=== PATIENT | female | born 1975 ===

== ENCOUNTER 2017-10-14 22:42 | Inpatient (IN) ==
[2017-10-14] MEDS ORDERED: ceFAZolin 2 GM Premix Inj 2 GM/50 ML PIGGYBACK IV.SIG ONE (22:49)
[2017-10-14 22:57] LABS: Baso # (Auto) 0.3 th/mm3 (0.0-0.2); Eos # (Auto) 0.7 th/mm3 (0.0-0.4); Eos % (Auto) 2.3 % (0.0-4.0); Hematocrit 39.6 % (35.0-46.0); Hemoglobin 12.9 gm/dL (11.6-15.3); Lymph # (Auto) 8.2 th/mm3 (1.0-4.8); Lymph % (Auto) 27.5 % (9.0-44.0); Mean Corpuscular HGB Conc 32.5 % (32.0-36.0); Mean Corpuscular Hemoglobin 29.7 pg (27.0-34.0); Mean Corpuscular Volume 91.2 fL (80.0-100.0); Mean Platelet Volume 8.3 fL (7.0-11.0); Mono # (Auto) 1.3 th/mm3 (0.0-0.9); Mono % (Auto) 4.5 % (0.0-8.0); Neut # (Auto) 19.4 th/mm3 (1.8-7.7); Neut % (Auto) 64.7 % (16.0-70.0); Platelet Count 279 th/mm3 (150-450); Red Blood Count 4.34 mil/mm3 (4.00-5.30); White Blood Count 29.9 th/mm3 (4.0-11.0)
[2017-10-14 23:07] LABS: Activated Partial Thrombo Time 25.7 sec (24.3-30.1); INR 1.1 Ratio; Prothrombin Time 10.9 sec (9.8-11.6)
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
[2017-10-14 23:48] LABS: Monocytes 3 % (0-8)
[2017-10-14 23:49] LABS: Lymphocytes 29 % (9-44)
[2017-10-14 23:50] LABS: Platelet Estimate Normal (Normal); Platelet Morphology Normal (Normal); RBC Morphology Normal (Normal)
[2017-10-14] MEDS ORDERED: Bisacodyl 10 MG Supp RECTAL PRN (23:50)
[2017-10-14] MEDS ORDERED: Norepinephrine Inj 4 MG/4 ML Ampul ONE (23:54)
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
[2017-10-15] MEDS ORDERED: Propofol 1000 mg/100 ml Inj 1,000 MG/100 ML BOTTLE IV.CONT PRN (00:35)
[2017-10-15] MEDS ORDERED: Propofol Inj 500 MG/50 ML Vial ONE (00:38)
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
[2017-10-15 01:23] LABS: ABG Base Excess -9.1 mmol/L (-2-2); ABG PCO2 33 mmHg (38-42); ABG PO2 291 mmHg (61-120)
[2017-10-15] MEDS: Sod Chloride 0.9% Inj 1,000 ML IV.CONT SCH ×3 (01:31→16:10)
[2017-10-15] MEDS ORDERED: Norepinephrine Inj 4 MG/4 ML Ampul ONE ×5 (01:50→08:07)
[2017-10-15] MEDS ORDERED: Phenylephrine Inj 40 MG in Dextrose 5% in Water Inj 496 ML IV.CONT PRN ×2 (01:52)
[2017-10-15] MEDS ORDERED: Vasopressin Inj 40 UNIT in Dextrose 5% in Water Inj 98 ML IV.CONT PRN ×2 (01:52)
[2017-10-15 03:21] LABS: Baso # (Auto) 0.1 th/mm3 (0.0-0.2); Baso % (Auto) 0.6 % (0.0-2.0); Eos # (Auto) 0.1 th/mm3 (0.0-0.4); Eos % (Auto) 0.6 % (0.0-4.0); Hemoglobin 9.3 gm/dL (11.6-15.3); Lymph # (Auto) 4.3 th/mm3 (1.0-4.8); Mean Corpuscular HGB Conc 33.1 % (32.0-36.0); Mean Corpuscular Hemoglobin 30.2 pg (27.0-34.0); Mean Corpuscular Volume 91.2 fL (80.0-100.0); Mean Platelet Volume 8.4 fL (7.0-11.0); Mono # (Auto) 0.5 th/mm3 (0.0-0.9); Mono % (Auto) 1.9 % (0.0-8.0); Neut # (Auto) 20.4 th/mm3 (1.8-7.7); Neut % (Auto) 79.9 % (16.0-70.0); Platelet Count 158 th/mm3 (150-450); Red Blood Count 3.07 mil/mm3 (4.00-5.30); Red Cell Distribution Width 13.9 % (11.6-17.2); White Blood Count 25.6 th/mm3 (4.0-11.0)
[2017-10-15] MEDS ORDERED: Chlorhexidine Gluconate 2% 1 Pack (2 Cloths) TOPICAL PRN (04:00)
[2017-10-15 04:27] LABS: Calcium 5.8 mg/dL (8.5-10.1); Carbon Dioxide 16.4 meq/L (21.0-32.0); Magnesium 1.6 mg/dL (1.5-2.5); Phosphorus 3.4 mg/dL (2.5-4.9); Potassium 3.9 meq/L (3.5-5.1)
[2017-10-15] MEDS ORDERED: ceFAZolin 2 GM IV; once IV.SIG ONE (04:45)
[2017-10-15 05:00] LABS: Total Protein 3.4 g/dL (6.4-8.2)
[2017-10-15] MEDS: Propofol 1000 mg/100 ml Inj 1,000 MG/100 ML BOTTLE IV.CONT PRN ×2 (05:48→12:20)
[2017-10-15 07:30] LABS: Baso # (Auto) 0.1 th/mm3 (0.0-0.2); Baso % (Auto) 0.5 % (0.0-2.0); Eos # (Auto) 0.1 th/mm3 (0.0-0.4); Eos % (Auto) 0.2 % (0.0-4.0); Hematocrit 40.9 % (35.0-46.0); Hemoglobin 13.8 gm/dL (11.6-15.3); Lymph # (Auto) 2.6 th/mm3 (1.0-4.8); Lymph % (Auto) 10.1 % (9.0-44.0); Mean Corpuscular HGB Conc 33.7 % (32.0-36.0); Mean Corpuscular Hemoglobin 29.8 pg (27.0-34.0); Mean Corpuscular Volume 88.3 fL (80.0-100.0); Mean Platelet Volume 8.1 fL (7.0-11.0); Mono # (Auto) 1.2 th/mm3 (0.0-0.9); Mono % (Auto) 4.6 % (0.0-8.0); Neut % (Auto) 84.6 % (16.0-70.0); Platelet Count 123 th/mm3 (150-450); Red Blood Count 4.63 mil/mm3 (4.00-5.30); Red Cell Distribution Width 14.2 % (11.6-17.2); White Blood Count 26.1 th/mm3 (4.0-11.0)
[2017-10-15] MEDS ORDERED: Potassium Chlor 20 mEq Premix 20 MEQ/100 ML PIGGYBACK IV.SIG PRN ×2 (07:37)
[2017-10-15] MEDS ORDERED: Magnesium Oxide 400 MG Tablet PO PRN (07:37)
[2017-10-15] MEDS ORDERED: Potassium Phosphate 500 MG Soluble Tablet PO PRN ×2 (07:37)
[2017-10-15] MEDS ORDERED: Potassium Chloride 25 MEQ Effervescent Tablet PO PRN (07:37)
[2017-10-15] MEDS ORDERED: Sodium Phosphate Inj 30 MMOL in Sodium Chlor 0.9% Inj 250 ML IV.SIG PRN (07:37)
[2017-10-15] MEDS ORDERED: Potassium Chlor 40 mEq Premix 40 MEQ/100 ML PIGGYBACK IV.SIG PRN ×2 (07:37)
[2017-10-15] MEDS ORDERED: Magnesium Sulfate Inj 2 GM in Sodium Chlor 0.9% Inj 96 ML IV.SIG PRN (07:37)
[2017-10-15] MEDS ORDERED: Magnesium Sulfate Inj 4 GM in Sodium Chlor 0.9% Inj 92 ML IV.SIG PRN (07:37)
[2017-10-15] MEDS ORDERED: Potassium Phosphate Inj 30 MMOL in Sodium Chlor 0.9% Inj 250 ML IV.SIG PRN (07:37)
[2017-10-15 08:17] LABS: Albumin 2.2 g/dL (3.4-5.0); Calcium 6.6 mg/dL (8.5-10.1); Carbon Dioxide 18.5 meq/L (21.0-32.0); Potassium 3.7 meq/L (3.5-5.1); Total Protein 4.1 g/dL (6.4-8.2)
[2017-10-15] MEDS ORDERED: Mag Sulf 1 gm/100 ml Premix 200 ML IV.SIG ONE (09:00)
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
[2017-10-15] MEDS ORDERED: Calcium Chloride Inj 1 GM/10 ML Syringe IV.CONT ONE (11:34)
[2017-10-15] MEDS ORDERED: Atropine Inj 1 MG/10 ML Syringe IV.PUSH ONE (11:34)
[2017-10-15] MEDS ORDERED: Sodium Bicarbonate 8.4% Inj 50 MEQ/50 ML Syringe IV.CONT ONE (11:34)
--- NOTE | 2017-10-15 11:35 | P.PNNS ---
Subjective Interval history: 42-year-old female with severe traumatic brain injury with a Sheyla Coma Score of 5 on presentation underwent cardiac arrest status post resuscitation. She also has a comminuted depressed left occipital area of the skull fracture. Her neurologic examination remains poor with a Sheyla Coma Score of 4 and fixed and dilated right pupil with negative corneal gag and cough reflex although has some spontaneous respiration extension posturing to pain. Apparently family has elected on no further resuscitation and made her DNR according to nursing staff contemplating withdrawal of supportive care. Physical Exam Vital signs: Vital Signs 10/14/17 23:45 10/15/17 02:58 10/15/17 04:00 Temperature 100.3 F H Pulse Rate 156 H 109 H Respiratory Rate 28 H 36 H 36 H Blood Pressure 163/106 H Pulse Oximetry 98 99 10/15/17 04:07 10/15/17 08:00 10/15/17 09:00 Temperature 101.8 F H Pulse Rate 103 H Respiratory Rate 30 H 25 H 27 H Blood Pressure 148/95 H Pulse Oximetry 100 100 10/15/17 09:03 Temperature Pulse Rate 106 H Respiratory Rate 27 H Blood Pressure Pulse Oximetry Intake & Output 10/14/17 10/15/17 10/15/17 18:59 06:59 18:59 Intake Total 1650 / 1650 Output Total 400 / 400 Balance 1250 / 1250 Weight 87 kg Intake: IV 50 / 50 Ancef 2 GM Premix Inj 2 gm In 50 / 50 50 ml @ 0 mls/hr IV.SIG .STK- MED ONE Rx#:[id number] Intake (Blood Product) Amt 800 / 800 Rbc As-3 Leukoreduced Unit 400 / 400 [id number] Rbc As-3 Leukoreduced Unit 400 / 400 [id number] Mass Transfusion Protocol 800 / 800 Output: Urine Amount (Catheter) 400 / 400 Indwelling Urethral Catheter 400 / 400 Other: Date of Last Bowel Movement 10/15/17 10/15/17 # Bowel Movements 2 Weight On Admission 87.3 kg - Constitutional obtunded - Routine HEENT Exam Head: Present: abrasion, laceration, Almendarez's sign, facial swelling - Detailed Head Exam Comments: Head pressure dressing in place - Detailed Eye Exam Pupils: Left regular, round, Left reactive, Right nonreactive/fixed, Right dilated - Routine Neck Exam Present: supple, trachea midline - Routine Respiratory Exam Present: patient mechanically ventilated, crackles - Routine Cardiovascular Exam Present: RRR - Routine Abdominal Exam Present: soft, normoactive bowel sounds - Routine Exam Comments: Roo catheter in place - Routine Extremities Exam Present: edema, pulses intact, normal capillary refill - Routine Skin Exam Present: lesions, wounds - Urinary Catheter Management Indwelling Urethral Catheter Cath placed during this visit: no Assessment and Plan - Plan Impression: 1. Severe traumatic brain injury 2. Extensive parieto-occipital scalp avulsion with underlying comminuted depressed skull fracture open to the dura and brain parenchyma 3. Right lateral clavicle proximal left humerus fractures 4. Status post cardiac arrest requiring resuscitation Plan: Very guarded prognosis at this point given the severity of the injuries with PEA arrest in the emergency room. Neurologic examination remains poor with a [place] Coma Score 4 and a fixed and dilated right pupil with negative corneal and gag or cough reflex does have some left pupillary response and decerebrate posturing with spontaneous respiration. She is suffered from significant traumatic injury to the brain with loss of majority brainstem reflexes. Family has made her DNR and are contemplating withdrawal of supportive care. Diagnostic Tests Laboratory: Laboratory Results - last 72 hr 10/14/17 10/14/17 10/14/17 22:45 22:45 22:45 WBC 29.9 H RBC 4.34 Hgb 12.9 POC Hgb (Calc) 12.2 Hct 39.6 POC Hct 36.0 MCV 91.2 MCH 29.7 MCHC 32.5 RDW 13.0 Plt Count 279 MPV 8.3 Prelim Diff (Auto) Slide review pending Neut % (Auto) 64.7 Lymph % (Auto) 27.5 [place] % (Auto) 4.5 Eos % (Auto) 2.3 Baso % (Auto) 1.0 Neut # (Auto) 19.4 H Lymph # (Auto) 8.2 H [place] # (Auto) 1.3 H Eos # (Auto) 0.7 H Baso # (Auto) 0.3 H WBC Differential Manual diff final Seg Neuts % (Manual) 66 Band Neuts % (Manual) 2 Lymphocytes % (Manual) 29 Monocytes % (Manual) 3 Abs Neuts (Manual) 20.3 H Differential Comment . Platelet Estimate Normal Platelet Morphology Normal RBC Morphology Normal PT 10.9 INR 1.1 APTT 25.7 Fibrinogen Puncture Site Patient Temperature O2 Saturation ABG pH ABG pCO2 ABG pO2 ABG HCO3 ABG O2 Content ABG Base Excess ABG Methemoglobin Matthew Test Hemoglobin Carboxyhemoglobin O2 Delivery Device Vent Setting Inspired O2 Critical Value POC Sodium 142 Sodium POC Potassium 4.2 Potassium POC Chloride 107 Chloride Carbon Dioxide Anion Gap POC BUN 16 BUN Creatinine POC Creatinine 1.0 Estimated GFR POC Glucose 138 H Random Glucose Calcium Prot Corrected Calcium Phosphorus Magnesium Total Bilirubin AST ALT Alkaline Phosphatase Total Protein Albumin Beta HCG, Quant 2 Blood Type Blood Type Confirm Blood Type Recheck Antibody Screen MTS Gel Crossmatch 10/14/17 10/14/17 10/14/17 22:45 22:45 22:45 WBC RBC Hgb POC Hgb (Calc) Hct POC Hct MCV MCH MCHC RDW Plt Count MPV Prelim Diff (Auto) Neut % (Auto) Lymph % (Auto) [place] % (Auto) Eos % (Auto) Baso % (Auto) Neut # (Auto) Lymph # (Auto) [place] # (Auto) Eos # (Auto) Baso # (Auto) WBC Differential Seg Neuts % (Manual) Band Neuts % (Manual) Lymphocytes % (Manual) Monocytes % (Manual) Abs Neuts (Manual) Differential Comment Platelet Estimate Platelet Morphology RBC Morphology PT INR APTT Fibrinogen 239 Puncture Site Patient Temperature O2 Saturation ABG pH ABG pCO2 ABG pO2 ABG HCO3 ABG O2 Content ABG Base Excess ABG Methemoglobin Matthew Test Hemoglobin Carboxyhemoglobin O2 Delivery Device Vent Setting Inspired O2 Critical Value POC Sodium Sodium POC Potassium Potassium POC Chloride Chloride Carbon Dioxide Anion Gap POC BUN BUN Creatinine POC Creatinine Estimated GFR POC Glucose Random Glucose Calcium Prot Corrected Calcium Phosphorus Magnesium Total Bilirubin AST ALT Alkaline Phosphatase Total Protein Albumin Beta HCG, Quant Cancelled Blood Type A Positive Blood Type Confirm Blood Type Recheck Not needed Antibody Screen Negative MTS Gel Crossmatch See Detail 10/14/17 10/15/17 10/15/17 22:45 01:00 02:26 WBC 25.6 H RBC 3.07 L Hgb 9.3 L D POC Hgb (Calc) Hct 28.0 L POC Hct MCV 91.2 MCH 30.2 MCHC 33.1 RDW 13.9 Plt Count 158 D MPV 8.4 Prelim Diff (Auto) Neut % (Auto) 79.9 H Lymph % (Auto) 17.0 [place] % (Auto) 1.9 Eos % (Auto) 0.6 Baso % (Auto) 0.6 Neut # (Auto) 20.4 H Lymph # (Auto) 4.3 [place] # (Auto) 0.5 Eos # (Auto) 0.1 Baso # (Auto) 0.1 WBC Differential . Seg Neuts % (Manual) Band Neuts % (Manual) Lymphocytes % (Manual) Monocytes % (Manual) Abs Neuts (Manual) Differential Comment Auto diff final Platelet Estimate Platelet Morphology RBC Morphology PT INR APTT Fibrinogen Puncture Site Right brachial Patient Temperature 98.6 O2 Saturation 97 ABG pH 7.31 L ABG pCO2 33 L ABG pO2 291 H ABG HCO3 16 L* ABG O2 Content 14.5 ABG Base Excess -9.1 L ABG Methemoglobin 1.1 Matthew Test Present Hemoglobin 10.1 L Carboxyhemoglobin 1.6 O2 Delivery Device Ventilator Vent Setting See comments Inspired O2 100 Critical Value Yes POC Sodium Sodium POC Potassium Potassium POC Chloride Chloride Carbon Dioxide Anion Gap POC BUN BUN Creatinine POC Creatinine Estimated GFR POC Glucose Random Glucose Calcium Prot Corrected Calcium Phosphorus Magnesium Total Bilirubin AST ALT Alkaline Phosphatase Total Protein Albumin Beta HCG, Quant Blood Type Blood Type Confirm A Positive Blood Type Recheck Antibody Screen MTS Gel Crossmatch 10/15/17 10/15/17 10/15/17 02:26 07:00 07:00 WBC 26.1 H RBC 4.63 Hgb 13.8 D POC Hgb (Calc) Hct 40.9 POC Hct MCV 88.3 MCH 29.8 MCHC 33.7 RDW 14.2 Plt Count 123 L MPV 8.1 Prelim Diff (Auto) Neut % (Auto) 84.6 H Lymph % (Auto) 10.1 [place] % (Auto) 4.6 Eos % (Auto) 0.2 Baso % (Auto) 0.5 Neut # (Auto) 22.0 H Lymph # (Auto) 2.6 [place] # (Auto) 1.2 H Eos # (Auto) 0.1 Baso # (Auto) 0.1 WBC Differential . Seg Neuts % (Manual) Band Neuts % (Manual) Lymphocytes % (Manual) Monocytes % (Manual) Abs Neuts (Manual) Differential Comment Auto diff final Platelet Estimate Platelet Morphology RBC Morphology PT INR APTT Fibrinogen Puncture Site Patient Temperature O2 Saturation ABG pH ABG pCO2 ABG pO2 ABG HCO3 ABG O2 Content ABG Base Excess ABG Methemoglobin Matthew Test Hemoglobin Carboxyhemoglobin O2 Delivery Device Vent Setting Inspired O2 Critical Value POC Sodium Sodium 149 H 149 H POC Potassium Potassium 3.9 3.7 POC Chloride Chloride 118 H 117 H Carbon Dioxide 16.4 L 18.5 L Anion Gap 15 14 POC BUN BUN 16 18 Creatinine 1.18 H 1.41 H POC Creatinine Estimated GFR 39 L 32 L POC Glucose Random Glucose 191 H 107 H Calcium 5.8 L* 6.6 L* D Prot Corrected Calcium 7.6 L 8.2 L Phosphorus 3.4 Magnesium 1.6 Total Bilirubin 0.9 AST 94 H ALT 47 Alkaline Phosphatase 66 Total Protein 3.4 L 4.1 L D Albumin 2.2 L Beta HCG, Quant Blood Type Blood Type Confirm Blood Type Recheck Antibody Screen MTS Gel Crossmatch Result Diagrams: 10/15/17 07:00 10/15/17 07:00 Imaging: Chest X-Ray 10/14/17 22:45 CONCLUSION: 1. The lungs are symmetrically aerated and clear. 2. Intubation of right main bronchus. The tube needs to be withdrawn at least 5 cm. Pelvis X-Ray 10/14/17 22:45 CONCLUSION: Bony pelvic ring is grossly intact. Abdomen/Pelvis CT 10/14/17 22:49 CONCLUSION: 1. The solid and hollow organs of the abdomen/pelvis are intact. No evidence of free fluid. 2. Probable bilateral hematomas in the lateral breasts, larger on the left than on the right. Cervical Spine CT 10/14/17 22:49 CONCLUSION: 1. Negative trauma CT cervical spine. Chest CT 10/14/17 22:49 CONCLUSION: 1. Fractures of the right lateral clavicle, right ribs, and proximal left humerus. 2. Consolidation and volume loss in the right upper lobe. 3. Moderate atelectasis medial posterior left midlung. 4. No evidence of pneumothorax. Head CT 10/14/17 22:49 CONCLUSION: 1. Large anteriorly displaced left high occipital skull fracture. 2. Large right scalp hematoma and soft tissue swelling extending about the right face with multiple collections of gas, but no radiopaque foreign bodies. 3. Subarachnoid hemorrhage bilateral occipital and parietal and right temporal region. Punctate cortical hemorrhages in bifrontal region. 4. No evidence of midline shift, but there is evidence of transtentorial herniation with effacement of the cisterns about the brainstem and cerebellum. Ankle X-Ray 10/14/17 23:16 CONCLUSION: Osseous structures about the ankle are grossly intact on this two-view examination. Lumbar Spine CT 10/14/17 23:23 CONCLUSION: 1. Negative trauma CT lumbar spine. Thoracic Spine CT 10/14/17 23:23 CONCLUSION: 1. Negative trauma CT thoracic spine.
[2017-10-15] MEDS: fentaNYL 10 mcg/mL Premix Drip 2,500 MCG/250 ML BAG IV.SIG PRN (11:42)
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
[2017-10-15] MEDS: Chlorhexidine 0.12% Oral Kit 15 ML UDC OROPHARYNG SCH (11:49)
[2017-10-15] MEDS: Senna/Docusate Sodium 8.6/50 MG Tablet PO SCH (11:50)
[2017-10-15] MEDS: Famotidine PF Inj 20 MG/2 ML Vial IV.PUSH SCH (11:51)
[2017-10-15] MEDS: Famotidine 20 MG Tablet PO SCH (11:52)
--- NOTE | 2017-10-15 11:56 | XR ---
EXAM DATE: 10/15/2017 11:53 AM EDT AGE/SEX: 89 years / Female INDICATIONS: Trauma. CLINICAL DATA: This is the patient's subsequent encounter. Patient reports that signs and symptoms h ave been present for 2 days and indicates a pain score of Nonresponsive. MEDICAL/SURGICAL HISTORY: Non-responsive. Non-responsive. COMPARISON: [facility] [place], [place]14/2017. [facility] [place]AST, 10/[place]/2017. . FINDINGS: A single AP view of the chest demonstrates left basilar consolidation. Right lung clear. Endotracheal tube 1.8 cm above the brett. Nasogastric tube with tip in stomach. The cardiomediastinal contours are unremarkable. Fracture distal right clavicle. CONCLUSION: Left basilar density. Electronically signed by: Price Fam MD 10/15/2017 11:55 AM EDT
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
[2017-10-15] MEDS ORDERED: Heparin 10,000 UNITS/10 ML Vial (for IV use) OTHER ONE (13:15)
--- NOTE | 2017-10-15 13:35 | OTSOAPIP ---
TIME SESSION COMPLETED: AM TREATMENT TIME: 0 MINS. CHART REVIEWED. RECEIVED ORDER FROM OCCUPATIONAL THERAPY. ATTEMPTED TO SEE AND PATIENT NOT STABLE FOR THERAPY. WILL FOLLOW. Therapist: Lindsay Rudolph Signature on file
[2017-10-15] MEDS: Oral Hygiene Kit OROPHARYNG SCH ×2 (13:40→18:16)
[2017-10-15 13:45] LABS: Baso # (Auto) 0.1 th/mm3 (0.0-0.2); Baso % (Auto) 0.3 % (0.0-2.0); Eos % (Auto) 0.1 % (0.0-4.0); Hematocrit 35.9 % (35.0-46.0); Hemoglobin 12.4 gm/dL (11.6-15.3); Lymph # (Auto) 3.4 th/mm3 (1.0-4.8); Lymph % (Auto) 14.2 % (9.0-44.0); Mean Corpuscular HGB Conc 34.5 % (32.0-36.0); Mean Corpuscular Hemoglobin 30.8 pg (27.0-34.0); Mean Corpuscular Volume 89.4 fL (80.0-100.0); Mean Platelet Volume 9.4 fL (7.0-11.0); Mono # (Auto) 1.3 th/mm3 (0.0-0.9); Mono % (Auto) 5.3 % (0.0-8.0); Neut # (Auto) 19.2 th/mm3 (1.8-7.7); Neut % (Auto) 80.1 % (16.0-70.0); Platelet Count 106 th/mm3 (150-450); Red Blood Count 4.01 mil/mm3 (4.00-5.30); Red Cell Distribution Width 14.1 % (11.6-17.2); White Blood Count 23.9 th/mm3 (4.0-11.0)
[2017-10-15 13:46] LABS: Activated Partial Thrombo Time 26.5 sec (24.3-30.1); INR 1.1 Ratio; Prothrombin Time 11.4 sec (9.8-11.6)
[2017-10-15 14:02] LABS: Calcium 6.6 mg/dL (8.5-10.1); Carbon Dioxide 17.7 meq/L (21.0-32.0); Potassium 3.9 meq/L (3.5-5.1); Total Protein 3.9 g/dL (6.4-8.2)
[2017-10-15 18:32] LABS: Bilirubin,Urine Negative (Negative); Clarity,Urine Hazy (Clear); Color,Urine Yellow (Yellw/Straw); Glucose,Urine (UA) Negative (Negative); Leukocyte Esterase,Urine Negative (Negative); Nitrite,Urine Negative (Negative); Specific Gravity,Urine 1.034 (1.002-1.035)
[2017-10-15 22:07] LABS: Hemoglobin A1c 5.2 % (4.3-6.0)
[2017-10-16 00:28] LABS: Baso # (Auto) 0.1 th/mm3 (0.0-0.2); Baso % (Auto) 0.3 % (0.0-2.0); Eos # (Auto) 0.1 th/mm3 (0.0-0.4); Eos % (Auto) 0.3 % (0.0-4.0); Hematocrit 32.6 % (35.0-46.0); Hemoglobin 11.5 gm/dL (11.6-15.3); Lymph # (Auto) 2.2 th/mm3 (1.0-4.8); Lymph % (Auto) 11.2 % (9.0-44.0); Mean Corpuscular HGB Conc 35.2 % (32.0-36.0); Mean Corpuscular Hemoglobin 30.4 pg (27.0-34.0); Mean Corpuscular Volume 86.4 fL (80.0-100.0); Mean Platelet Volume 8.6 fL (7.0-11.0); Mono % (Auto) 5.2 % (0.0-8.0); Neut # (Auto) 16.5 th/mm3 (1.8-7.7); Platelet Count 91 th/mm3 (150-450); Red Blood Count 3.77 mil/mm3 (4.00-5.30); White Blood Count 19.9 th/mm3 (4.0-11.0)
[2017-10-16 00:45] LABS: Calcium 6.5 mg/dL (8.5-10.1); Carbon Dioxide 19.8 meq/L (21.0-32.0); Total Protein 4.2 g/dL (6.4-8.2)
[2017-10-16] MEDS: Oral Hygiene Kit OROPHARYNG SCH ×4 (01:55→06:21)
[2017-10-16] MEDS: Senna/Docusate Sodium 8.6/50 MG Tablet PO SCH (01:56)
[2017-10-16] MEDS: Famotidine PF Inj 20 MG/2 ML Vial IV.PUSH SCH (01:56)
[2017-10-16] MEDS: Chlorhexidine 0.12% Oral Kit 15 ML UDC OROPHARYNG SCH ×2 (01:56→10:03)
[2017-10-16] MEDS: Sod Chloride 0.9% Inj 1,000 ML IV.CONT SCH ×2 (01:59→07:55)
[2017-10-16] MEDS: Famotidine 20 MG Tablet PO SCH ×2 (02:00→10:02)
[2017-10-16] MEDS: Chlorhexidine Gluconate 2% 1 Pack (2 Cloths) TOPICAL SCH ×2 (02:01→06:20)
[2017-10-16 03:49] LABS: Eosinophils 1 % (0-4); Lymphocytes 18 % (9-44); Platelet Morphology Normal (Normal); RBC Morphology Normal (Normal)
--- NOTE | 2017-10-16 05:56 | XR ---
EXAM DATE: 10/16/2017 4:00 AM EDT AGE/SEX: 89 years / Female INDICATIONS: Shortness of breath CLINICAL DATA: This is the patient's subsequent encounter. Patient reports that signs and symptoms h ave been present for 2 days and indicates a pain score of Nonresponsive. MEDICAL/SURGICAL HISTORY: Non-responsive. Non-responsive. COMPARISON: [facility] – [place], CHEST 1V SINGLE AP, 10/15/2017. . FINDINGS: ET tube tip is 1.7 cm above the brett. There is persisting consolidation in the left lower lung with loss of delineation of the left hemidiaphragm. The right lung is clear. Gastric tube traverses the f [id number]. CONCLUSION: 1. Persistent left lower lobe consolidation. 2. ET tube tip is 1.7 cm above the brett and needs to be withdrawn 1 cm. Electronically signed by: Scott Bliss MD 10/16/2017 5:55 AM EDT
[2017-10-16 06:00] LABS: ABG Base Excess -6.3 mmol/L (-2-2); ABG PCO2 31 mmHg (38-42); ABG PO2 101 mmHg (61-120)
[2017-10-16 06:24] LABS: Baso # (Auto) 0.1 th/mm3 (0.0-0.2); Baso % (Auto) 0.5 % (0.0-2.0); Eos # (Auto) 0.1 th/mm3 (0.0-0.4); Eos % (Auto) 0.4 % (0.0-4.0); Hematocrit 31.8 % (35.0-46.0); Lymph # (Auto) 1.4 th/mm3 (1.0-4.8); Lymph % (Auto) 7.1 % (9.0-44.0); Mean Corpuscular HGB Conc 34.7 % (32.0-36.0); Mean Corpuscular Hemoglobin 30.8 pg (27.0-34.0); Mean Corpuscular Volume 88.9 fL (80.0-100.0); Mean Platelet Volume 8.9 fL (7.0-11.0); Mono # (Auto) 0.8 th/mm3 (0.0-0.9); Mono % (Auto) 4.2 % (0.0-8.0); Neut # (Auto) 17.1 th/mm3 (1.8-7.7); Neut % (Auto) 87.8 % (16.0-70.0); Platelet Count 93 th/mm3 (150-450); Red Blood Count 3.58 mil/mm3 (4.00-5.30); Red Cell Distribution Width 14.7 % (11.6-17.2); White Blood Count 19.5 th/mm3 (4.0-11.0)
[2017-10-16] MEDS: fentaNYL 10 mcg/mL Premix Drip 2,500 MCG/250 ML BAG IV.SIG PRN (06:43)
[2017-10-16 07:04] LABS: Calcium 6.6 mg/dL (8.5-10.1); Carbon Dioxide 19.7 meq/L (21.0-32.0); Potassium 4.5 meq/L (3.5-5.1); Total Protein 4.4 g/dL (6.4-8.2)
[2017-10-16 07:49] LABS: Bacteria,Urine Occasional /hpf; Bilirubin,Urine Negative (Negative); Clarity,Urine Cloudy (Clear); Color,Urine Yellow (Yellw/Straw); Glucose,Urine (UA) Negative (Negative); Hyaline Casts,Urine 8 /lpf (0-3); Leukocyte Esterase,Urine Moderate (Negative); Mucus,Urine Few /lpf (Occasional); Nitrite,Urine Negative (Negative); Specific Gravity,Urine 1.023 (1.002-1.035); Squamous Epithelial Cell,Urine 7 /hpf (0-5); Transitional Epi Cells,Urine <1 /hpf
[2017-10-16 07:54] LABS: Lymphocytes 7 % (9-44); Monocytes 4 % (0-8)
[2017-10-16 07:55] LABS: Burr Cells 1+; Platelet Morphology Normal (Normal)
[2017-10-16] MEDS ORDERED: Morphine Sulfate Inj 8 MG/ML Vial IV.PUSH ONE (09:42)
[2017-10-16] MEDS ORDERED: Hyoscyamine Inj 0.5 MG/ML Ampul IV.PUSH ONE (09:46)
[2017-10-16] MEDS ORDERED: Morphine Inj 4 MG/ML Vial IV.PUSH ONE (09:46)
[2017-10-16] MEDS ORDERED: Hyoscyamine Inj 0.5 MG/ML Ampul IV.PUSH PRN (09:48)
[2017-10-16] MEDS ORDERED: Acetaminophen 650 MG Supp RECTAL PRN (09:48)
[2017-10-16] MEDS ORDERED: Bisacodyl 10 MG Supp RECTAL PRN (09:48)
[2017-10-16] MEDS ORDERED: Morphine Sulfate Inj 8 MG/ML Vial ONE (10:14)
[2017-10-16] MEDS ORDERED: Heparin 10,000 UNITS/10 ML Vial (for IV use) IV.PUSH ONE (10:30)
[2017-10-16] MEDS: Morphine Sulfate Inj 8 MG/ML Vial IV.PUSH PRN ×2 (10:58→11:11)
--- NOTE | 2017-10-16 11:53 | P.PNPAL ---
Present for withdrawal of vent. Asystolic 1131, final pronouncement of 1136 outside of OR. Pt is DCD organ donor. Osbaldo
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
== END 2017-10-16 11:36 | disposition expired ==
LOC: NEPI 22:42 → NEDA 23:57 → N03 10-15 00:08
PROVIDERS: ADMIT Surgery; ATTEND Surgery
DX: V49.88XA Car occupant (driver) (passenger) injured in other specified transport accidents, initial encounter; E66.9 Obesity, unspecified; Z51.5 Encounter for palliative care; S70.12XA Contusion of left thigh, initial encounter; S22.41XA Multiple fractures of ribs, right side, initial encounter for closed fracture; Z68.31 Body mass index [BMI] 31.0-31.9, adult; G93.5 Compression of brain; S42.202A Unspecified fracture of upper end of left humerus, initial encounter for closed fracture; K59.00 Constipation, unspecified; S02.0XXB Fracture of vault of skull, initial encounter for open fracture; R00.0 Tachycardia, unspecified; S42.001A Fracture of unspecified part of right clavicle, initial encounter for closed fracture; R40.2433 Glasgow coma scale score 3-8, at hospital admission; G40.909 Epilepsy, unspecified, not intractable, without status epilepticus; S02.11HB Other fracture of occiput, left side, initial encounter for open fracture; Z66 Do not resuscitate; S70.11XA Contusion of right thigh, initial encounter; S30.1XXA Contusion of abdominal wall, initial encounter; J98.11 Atelectasis